=== PATIENT | male | born 1990 | race Caucasian/White ===

== ENCOUNTER 2016-09-30 15:13 | Emergency (ER) | payer OTHER ==
[2016-09-30 15:27] VITALS: BP 125/77; PULSE 87; RESP 20; TEMP 98.4; O2SAT 100
--- NOTE | 2016-09-30 16:06 | C.PDOC ---
History Of Present Illness 26 y/o male presents to the ED requesting detox from heroin. Reports using 30 bags daily with occasional alcohol use. Patient denies SI/HI or any physical complaints. Time Seen by Provider: 09/30/16 15:45 Chief Complaint (Nursing): Substance Abuse History Per: Patient History/Exam Limitations: no limitations Onset/Duration Of Symptoms: Hrs, Persistent Current Symptoms Are (Timing): Still Present Suicide/Self Injury Attempted (Context): None Modifying Factor(s): Alcohol, Other (heroin) Involuntary Hold By: None Recent travel outside of the [place]: No Past Medical History Reviewed: Historical Data, Nursing Documentation, Vital Signs Vital Signs: Last Vital Signs Temp 98.4 F 09/30/16 15:27 Pulse 87 09/30/16 15:27 Resp 20 09/30/16 16:15 BP 125/77 09/30/16 15:27 Pulse Ox 100 09/30/16 16:22 - Medical History PMH: No Chronic Diseases Surgical History: No Surg Hx - [facility] DETOXIFICATION SERVICES FOR SUBSTANCE ABUSE TREATMENT (10/14/15) Family History: States: No Known Family Hx - Social History Hx Tobacco Use: Yes Hx Alcohol Use: Yes (occasional) Hx Substance Use: Yes (heroin iv) - Immunization History Hx Tetanus Toxoid Vaccination: No Hx Influenza Vaccination: No Hx Pneumococcal Vaccination: No Review Of Systems Except As Marked, All Systems Reviewed And Found Negative. Constitutional: Positive for: Other (requesting detox) Musculoskeletal: Negative for: Other (pain) Psych: Negative for: Suicidal ideation Physical Exam - Physical Exam Appears: Non-toxic, No Acute Distress Skin: Warm, Dry Head: Atraumatic, Normacephalic Neck: Normal ROM Chest: Symmetrical Cardiovascular: Rhythm Regular Respiratory: Normal Breath Sounds, No Rales, No Rhonchi, No Wheezing Gastrointestinal/Abdominal: Normal Exam, Soft, No Tenderness Back: Normal Inspection, No CVA Tenderness Extremity: Normal ROM, No Swelling, Other (track gay b/l forearms - no erythema) Pulses: Left Radial: Normal, Right Radial: Normal Neurological/Psych: Oriented x3, Normal Speech, Normal Cognition ED Course And Treatment O2 Sat by Pulse Oximetry: 100 (ra) Pulse Ox Interpretation: Normal Medical Decision Making Medical Decision Makin bags heroine daily seeking detox, not available Referred to local progams and to call back for availability. Disposition Doctor Will See Patient In The: Office Counseled Patient/Family Regarding: Studies Performed, Diagnosis - Disposition Referrals: Alcoholics Anonymous [Outside] [facility] [Outside] [facility] [Outside] Disposition: HOME/ ROUTINE Disposition Time: 16:05 Condition: GOOD Additional Instructions: seek local detox programs- lists given Call back for availability @ [facility]- you must be pres-screened. Instructions: Narcotic Abuse (ED), Opioid Withdrawal (ED) - Clinical Impression Clinical Impression: Heroin abuse - Scribe Statement The provider has reviewed the documentation as recorded by the Scribe (Farideh Avelar) Provider Attestation: All medical record entries made by the Scribe were at my direction and personally dictated by me. I have reviewed the chart and agree that the record accurately reflects my personal performance of the history, physical exam, medical decision making, and the department course for this patient. I have also personally directed, reviewed, and agree with the discharge instructions and disposition.
== END 2016-09-30 16:14 | disposition home or self-care (01) ==
LOC: C.ER 15:13
DX: F11.10 Opioid abuse, uncomplicated (principal)